=== PATIENT | female | born 1985 | race Caucasian/White ===

== ENCOUNTER 2019-03-17 13:02 | Emergency (ER) | payer MEDICAID ==
[2019-03-17 13:30] VITALS: BP 120/84; PULSE 74
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
[2019-03-17] MEDS ORDERED: Sodium Chloride 0.9% 80 ML IV ONE (14:02)
[2019-03-17] MEDS: Sodium Chloride 0.9% 10 ML Syringe FLUSH ONE ×2 (14:09→15:35)
[2019-03-17] MEDS ORDERED: Iopamidol 612 MG/ML 100 ML Bottle IV SCH (14:15)
[2019-03-17] MEDS ORDERED: oxyCODONE 5 MG Tab ONE (15:45)
[2019-03-17] MEDS ORDERED: Ibuprofen 600 MG Tab PO ONE (15:50)
[2019-03-17] MEDS ORDERED: Ibuprofen 600 MG Tab ONE (15:52)
--- NOTE | 2019-03-17 16:30 | CRLCT ---
INDICATION: Crush injury to pelvis. TECHNIQUE: Contrast-enhanced CT abdomen pelvis 100 mL Isovue-300. COMPARISON: No comparison studies are available FINDINGS: The heart size is normal. There is no pericardial effusion. The lung bases are clear. No effusion. Liver gallbladder appears unremarkable. Spleen upper limits of normal. Left renal cysts additional too small to characterize low-density lesions in the kidneys. There is no hydronephrosis. Urinary bladder is unremarkable. Bowel is unremarkable. There is rim enhancing lesion in the right ovary this most likely would reflect a corpus luteum cyst. There is a small amount of free fluid in the pelvis with Hounsfield units of 12. This probably is related to ruptured corpus luteum cyst. There is no free air. There is no acute fracture seen. Impression: 1. No acute fracture seen. No solid or hollow organ injury seen. 2. Rim enhancing lesion the right ovary most likely would represent corpus luteum cyst. There is a low dense small amount of fluid in the pelvis probably related to ruptured corpus luteum cyst. Please note that all CT scans at this facility use dose modulation, iterative reconstruction, and/or weight-based dosing when appropriate to reduce radiation dose to as low as reasonably achievable. Dictated by Guerda Sagastume MD @ Mar 17 2019 4:12PM Signed by Dr. Guerda Sagastume @ Mar 17 2019 4:29PM
== END 2019-03-17 16:39 | disposition home or self-care (01) ==
LOC: JP.ED 13:02
DX: M25.551 Pain in right hip (principal); Z88.5 Allergy status to narcotic agent; Z91.048 Other nonmedicinal substance allergy status; Z87.891 Personal history of nicotine dependence; W20.8XXA Other cause of strike by thrown, projected or falling object, initial encounter; Y93.89 Activity, other specified
CPT/HCPCS: 36415; 74177; 80048; 81001; 81025; 82550; 85027; 99283; A9270; J7030; Q9967

== ENCOUNTER 2019-12-03 20:03 | Emergency (ER) | payer MEDICAID ==
[2019-12-03] MEDS ORDERED: hydrOXYzine HCL 100 MG/2 ML SDV IM ONE (20:50)
[2019-12-03 20:53] VITALS: BP 135/87; PULSE 108
[2019-12-03] MEDS ORDERED: Dexamethasone 4 MG/ML SDV IM ONE (21:06)
[2019-12-03] MEDS ORDERED: Famotidine 20 MG Tab PO ONE (21:07)
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
== END 2019-12-03 22:37 | disposition home or self-care (01) ==
LOC: JP.ED 20:03
DX: L50.9 Urticaria, unspecified (principal); F17.210 Nicotine dependence, cigarettes, uncomplicated; Z91.09 Other allergy status, other than to drugs and biological substances; Z88.5 Allergy status to narcotic agent
CPT/HCPCS: 96372; 99283; A9270; J1100; J3410